=== PATIENT | female | born 1970 | race African-American/Black ===

== ENCOUNTER → 2016-12-02 | Outpatient (CLI) | payer OTHER ==
--- NOTE | 2016-12-02 16:39 | CT ---
EXAMINATION: CT paranasal sinuses HISTORY: Chronic sinusitis COMPARISON: None TECHNIQUE: Axial CT images obtained through the paranasal sinuses without contrast. Coronal and sagi ttal reconstructions obtained. FINDINGS: The maxillary sinuses are grossly patent. The frontal sinuses are hypoplastic. The sphenoi d sinuses and ethmoid air cells are clear. The sphenoethmoidal recesses are patent. The ostiomeatal complexes are clear. There is a small bone island within the left maxilla. The mastoid air cells and middle ears are clear. The facial bones appear intact. The orbits and globes appear symmetric. No b anny destruction or air-fluid levels. IMPRESSION: No evidence of active paranasal sinus disease.
== END ==
LOC: MW.DI 13:09
PROVIDERS: ATTEND Otolaryngology Otolaryngology/Facial Plastic Surgery
DX: J32.8 Other chronic sinusitis (principal)
CPT/HCPCS: 70486; 70486-26